=== PATIENT | male | born 1960 ===

== ENCOUNTER → 2022-04-08 | Outpatient (CLI) | payer BC ==
[~2022-04-08] VITALS: Ht 175.3 cm; Wt 80.0 kg
[~2022-04-08] MED LIST: LIDOCAINE 1% INJ 10 ML VIAL INJ ONE
--- NOTE | 2022-04-08 14:50 | Diagnostic Imaging Report ---
INDICATION: Right thyroid mass. Patient presents for ultrasound-guided fine-needle aspiration and Rotex biopsy. The patient was brought to the procedure room and placed on the table in supine position. Ultrasound imaging of the right neck was performed to evaluate appropriate entry site. The right neck was then prepped and draped in the usual sterile fashion. Small amount of 1% lidocaine was utilized for local anesthesia. A total of 4 passes were made into the mixed solid and cystic mass right lobe of the thyroid utilizing 25-gauge needles and fine-needle aspiration technique. A single pass was made with a Rotex needle and a Rotex biopsy was performed. Hemostasis was obtained. Patient tolerated the procedure well and left the department in stable condition. IMPRESSION: Successful ultrasound-guided fine-needle aspiration and Rotex biopsy right lobe thyroid dominant mass. Pathology results are currently pending. Dictated by: Dictated on workstation # [id number]
== END ==
LOC: RAD 10:51
PROVIDERS: ATTEND Nurse Practitioner
DX: E04.1 Nontoxic single thyroid nodule (principal)
CPT/HCPCS: 10005